=== PATIENT | female | born 1985 | race Two or more races ===

== ENCOUNTER 2017-06-17 07:49 | Day surgery (SDC) | END 2017-06-17 13:30 | disposition home or self-care (01) ==

== ENCOUNTER 2017-07-13 11:30 | Emergency (ER) | END 2017-07-13 14:55 | disposition home or self-care (01) ==

== ENCOUNTER 2018-06-14 11:58 | Emergency (ER) | payer BC ==
[~2018-06-14] VITALS: Ht 172.7 cm; Wt 60.8 kg
[2018-06-14 12:03] VITALS: BP 126/71; PULSE 101; RESP 20; Ht 172.7 cm; Wt 60.8 kg
[2018-06-14] MEDS ORDERED: ACETAMINOPHEN 500 MG TAB PO STA (14:51)
[2018-06-14] MEDS ORDERED: ACYCLOVIR 800 MG TAB PO ONE (15:00)
[2018-06-14] MEDS ORDERED: LIDO5CRE24 TP (15:21)
[2018-06-14] MEDS ORDERED: TRAM50TA2 PO (15:21)
[2018-06-14] MEDS ORDERED: ACYC800T5 PO (15:21)
[2018-06-14] MEDS ORDERED: ACET500C5 PO (15:24)
--- NOTE | 2018-06-16 23:44 | ERD ---
ER Documentation Chief Complaint Chief Complaint Complains of a rash on the left side of neck since yesterday HPI 32 year-old female coming in today with Chief Complaint: rash History of Present Illness: Yi patient coming in today with complaint of rash noted to left neck that started yesterday; . Associated symptoms includes rash, pruritus to rash, pain to rash. Denies any other associated symptoms. Denies at home use of medications for symptoms. Review of systems: All systems were reviewed and are negative except for what is indicated in the history of present illness. Past Medical History: Negative for hypertension, diabetes or other medical problems; positive surgical history to left foot Social History: Patient denies tobacco, alcohol, elicit drug use Medications: None Allergies: NKDA Social Concerns: Denies ROS All systems reviewed and are negative except as per history of present illness. Medications Home Meds Active Scripts Acetaminophen* (Tylophen*) 500 Mg Capsule, 2 CAP PO Q6 PRN for PAIN AND OR ELEVATED TEMP, #20 CAP Prov:MINAL RING NP 06/14/18 Lidocaine (Lidocaine) 5 Gm Cream..g., 5 GM TP TID for skin pain, #1 TUBE Prov:MINAL RING V [employer] 06/14/18 Tramadol HCl (Tramadol HCl) 50 Mg Tablet, 50 MG PO Q6 PRN for PAIN, #10 TAB Prov:MINAL RING V [employer] 06/14/18 Acyclovir* (Zovirax*) 800 Mg Tablet, 800 MG PO 5 TIMES DAILY for 7 Days, #34 TAB Prov:MINAL RING V [employer] 06/14/18 Allergies Allergies: Coded Allergies: cephalexin (Verified Allergy, Severe, sob, 06/14/18) PMhx/Soc History of Surgery: No Anesthesia Reaction: No Hx Neurological Disorder: No Hx Respiratory Disorders: No Hx Cardiac Disorders: No Hx Psychiatric Problems: No Hx Miscellaneous Medical Probl: No Hx Alcohol Use: No Hx Substance Use: No Hx Tobacco Use: No Smoking Status: Never smoker FmHx Family History: diabetes; No coronary disease, No other Physical Exam Vitals Vital Signs Date Temp Pulse Resp B/P (MAP) Pulse Ox O2 O2 Flow FiO2 Time Delivery Rate 06/14/18 99.2 101 20 126/71 98 12:03 (89) Physical Exam Const: No acute distress Head: Atraumatic Eyes: Normal Conjunctiva ENT: Normal External Ears, Nose and Mouth. Neck: Full range of motion. No meningismus. Resp: Clear to auscultation bilaterally Cardio: Regular rate and rhythm, no murmurs Abd: Soft, non tender, non distended. Normal bowel sounds Skin: No petechiae; rash noted to base of left side of neck (approximately 2-3 cm, tender to palpation, erythema, vesicular). Back: No midline or flank tenderness Ext: No cyanosis, or edema Neur: Awake and alert Psych: Normal Mood and Affect Results 24 hrs Current Medications Medications Dose Sig/Benjamín Start Time Status Last (Trade) Ordered Route PRN Stop Time Admin Dose Reason Admin 1,000 mg ONCE STAT 06/14/18 DC 06/14/18 Acetaminophen PO 14:51 06/14/18 15:26 (Tylenol 14:53 Tab) Acyclovir 800 mg ONCE ONCE 06/14/18 DC 06/14/18 (Zovirax) PO 15:00 06/14/18 15:25 15:01 Procedures/MDM ED course includes a thorough examination and history. ED course includes medications; acetaminophen for pain and very low-grade fever and first dose of antivirals, acyclovir. Low suspicion for life-threatening medical emergency. Otherwise healthy patient presenting with constellation of symptoms likely representing uncomplicated shingles as characterized by history, physical exam findings. No respiratory distress, otherwise relatively well appearing and nontoxic. Patient educated on diagnoses, prescriptions (acyclovir for antivirals for shingles treatment, acetaminophen for mild to moderate pain, tramadol for severe pain in the event that shingle spreads, lidocaine for topical pain relief, follow-up care, return precautions. Strict return precautions given for worsening condition; questions answered discharge. Disposition for discharge with followup in 2-3 days with PCP/clinic for reevaluation of symptoms. Departure Diagnosis: Primary Impression: Shingles Condition: Stable Patient Instructions: Shingles (Herpes Zoster) Additional Instructions: Call your primary care doctor TOMORROW for an appointment during the next 2-3 days.See the doctor sooner or return here if your condition worsens before your appointment time. You will need a reevaluation of your condition in 2-3 days to ensure that medication is treating infection appropriately. If you notice a rash starting on face/eyes, seek medical attention sooner. MINAL RING NP Jun 16, 2018 23:44
== END 2018-06-14 16:02 | disposition home or self-care (01) ==
LOC: FTE 11:58
DX: B02.9 Zoster without complications (principal)
CPT/HCPCS: Z7502; Z7610; 99283